=== PATIENT | female | born 1950 | race Caucasian/White ===

== ENCOUNTER 2016-11-12 14:24 | Inpatient (IN) | payer MEDICARE ==
[2016-11-12 14:59] LABS: CHLORIDE,CL 100 mEq/L (98-106); SODIUM,NA 141 mEq/L (136-145)
[2016-11-12] MEDS ORDERED: Ondansetron 4 MG/2 ML SDV IV PRN (16:50)
[2016-11-12] MEDS ORDERED: Magnesium Sulfate/D5W 2 GM in Premix Bag 1 BAG IV ONE (16:50)
[2016-11-12] MEDS ORDERED: Ondansetron 4 MG Tab.DIS PO PRN (16:50)
[2016-11-12] MEDS ORDERED: SALIVA SUBSTITUTION COMBO NO 9 PO PRN (17:06)
[2016-11-12] MEDS ORDERED: ALENDRONATE SODIUM 70 MG PO SCH (17:15)
[2016-11-12] MEDS: Sodium Chloride 0.45% with KCl 1,000 ML IV SCH (17:17)
[2016-11-12] MEDS: Enoxaparin 30 MG/0.3 ML Syringe SUBCUT SCH (17:20)
[2016-11-12] MEDS ORDERED: Meclizine 12.5 MG Tab PO PRN (17:38)
[2016-11-12] MEDS: Amitriptyline 25 MG Tab PO SCH (19:55)
[2016-11-12] MEDS: Lactulose Soln 10 GM/15 ML 30 ML UD Cup PO SCH (19:56)
[2016-11-12] MEDS: Potassium Chloride 10 MEQ Tab.ER PO SCH (19:56)
[2016-11-12] MEDS: Polyvinyl Alcohol 1.4% Ophth Soln 15 ML Bottle EYEBOTH SCH (19:57)
[2016-11-12] MEDS: Famotidine 20 MG Tab PO SCH (19:57)
[2016-11-12] MEDS: Insulin Detemir 100 Units/ML 3 ML Pen SUBCUT SCH (21:22)
[2016-11-12] MEDS: Nystatin Crm 30 GM Tube TOP SCH (21:27)
[2016-11-13] MEDS: Nystatin Crm 30 GM Tube TOP SCH ×2 (07:23→20:18)
[2016-11-13] MEDS: Polyvinyl Alcohol 1.4% Ophth Soln 15 ML Bottle EYEBOTH SCH ×3 (07:23→20:23)
[2016-11-13] MEDS ORDERED: OMEGA PO SCH (08:00)
[2016-11-13] MEDS ORDERED: Potassium Chloride 10 MEQ Tab.ER PO SCH (08:21)
[2016-11-13] MEDS: Chlorthalidone 25 MG Tab PO SCH (08:36)
[2016-11-13] MEDS: Aspirin 81 MG Tab.Chew PO SCH (08:36)
[2016-11-13] MEDS: Lactulose Soln 10 GM/15 ML 30 ML UD Cup PO SCH ×2 (08:36→20:18)
[2016-11-13] MEDS: Torsemide 20 MG Tab PO SCH (08:37)
[2016-11-13] MEDS: Folic Acid 1 MG Tab PO SCH ×2 (08:37→20:18)
[2016-11-13] MEDS: atorvaSTATin 20 MG Tab PO SCH (08:38)
[2016-11-13] MEDS: Famotidine 20 MG Tab PO SCH ×2 (08:39→20:17)
[2016-11-13] MEDS: Pantoprazole 40 MG Tab.CR PO SCH (08:40)
[2016-11-13] MEDS: Clopidogrel 75 MG Tab PO SCH (08:40)
[2016-11-13] MEDS: FLUoxetine 20 MG Cap PO SCH (08:40)
[2016-11-13] MEDS: Atenolol 50 MG Tab PO SCH (08:40)
[2016-11-13] MEDS: Potassium Chloride 10 MEQ Tab.ER PO SCH ×3 (08:42→17:22)
[2016-11-13] MEDS ORDERED: Potassium Chloride 10 MEQ Tab.ER PO ONE (09:00)
[2016-11-13] MEDS: Insulin Aspart 100 Units/ML 3 ML Pen SUBCUT SCH ×4 (09:15→20:24)
--- NOTE | 2016-11-13 09:18 | PCM.PN ---
- General Info Date of Service: 11/13/16 Admission Dx/Problem (Free Text): Hypomagnesemia Abdominal Pain Weakness Functional Status: Reports: Pain Controlled, Tolerating Diet, Ambulating (does still weak in the left leg but improved some since yesterday) - Review of Systems General: Reports: Weakness, Fatigue. Denies: Fever HEENT: Reports: No Symptoms Pulmonary: Denies: Shortness of Breath, Cough Cardiovascular: Denies: Chest Pain, Edema, Lightheadedness Gastrointestinal: Reports: Abdominal Pain. Denies: Nausea, Vomiting Genitourinary: Denies: Dysuria Musculoskeletal: Reports: No Symptoms Skin: Reports: No Symptoms Neurological: Reports: Dizziness, Weakness Psychiatric: Reports: No Symptoms - Patient Data Vitals - Most Recent: Last Vital Signs Temp 97.5 F 11/13/16 07:15 Pulse 64 11/13/16 08:40 Resp 20 11/13/16 07:15 BP 138/63 11/13/16 08:40 Pulse Ox 95 11/13/16 07:15 Weight - Most Recent: 184 lb 4.8 oz Lab Results Last 24 Hours: Laboratory Results - last 24 hr 11/12/16 11/12/16 11/12/16 Range/Units 14:35 14:35 14:35 WBC 6.1 (5.0-10.0) 10^3/uL RBC 3.89 L (4.00-5.50) 10^6/uL Hgb 11.1 L (12.0-16.0) g/dL Hct 33.3 L (37.0-47.0) % MCV 85.6 (82.0-94.0) fL MCH 28.5 (27.0-32.0) pg MCHC 33.3 (33.0-38.0) g/dL RDW Coeff of [place]idget[place] 13.7 (11.0-15.0) % Plt Count 95 L (150-400) 10^3/uL Neut % (Auto) 59.4 (35-85) % Lymph % (Auto) 28.1 (10-55) % [place] % (Auto) 8.8 (0-16) % Eos % (Auto) 3.5 (0-5) % Baso % (Auto) 0.2 (0-3) % Neut # (Auto) 3.60 (1.80-7.00) 10^3/uL Lymph # (Auto) 1.70 (1.00-4.80) 10^3/uL [place] # (Auto) 0.53 (0.00-0.80) 10^3/uL Eos # (Auto) 0.21 (0.00-0.45) 10^3/uL Baso # (Auto) 0.01 10^3/uL Sodium 141 (136-145) mEq/L Potassium 3.3 L (3.5-5.0) mEq/L Chloride 100 (98-106) mEq/L Carbon Dioxide 32 (21-32) mmol/L BUN 28 H (7-18) mg/dL Creatinine 1.5 H (0.6-1.0) mg/dL Est Cr Clr Drug Dosing 26.50 mL/min Estimated GFR (MDRD) 35 L (>=60) mL/min Glucose 194 H (75-99) mg/dL POC Glucose (75-105) mg/dl Calcium 8.5 (8.4-10.1) mg/dL Magnesium 1.3 L (1.8-2.4) mg/dL Total Bilirubin 0.6 (0.0-1.0) mg/dL AST 28 (15-37) U/L ALT 35 (12-78) U/L Alkaline Phosphatase 69 (46-116) U/L Troponin I < 0.017 (0.00-0.06) ng/mL Total Protein 8.0 (6.4-8.2) g/dL Albumin 3.5 (3.4-5.0) g/dL Urine Color Yellow (YELLOW) Urine Appearance Clear (CLEAR) Urine pH 5.5 (4.5-8.0) Ur Specific [place] 1.015 (1.003-1.020) Urine Protein Negative (NEGATIVE) mg/dL Urine Glucose (UA) Negative (NEGATIVE) mg/dL Urine Ketones Negative (NEGATIVE) mg/dL Urine Occult Blood Negative (NEGATIVE) Urine Nitrite Negative (NEGATIVE) Urine Bilirubin Negative (NEGATIVE) Urine Urobilinogen 0.2 (0.2-1.0) EU/dL Ur Leukocyte Esterase Small H (NEGATIVE) Urine RBC Not seen (0-5) /HPF Urine WBC 0-5 (0-5) /HPF 11/12/16 11/12/16 11/13/16 Range/Units 17:08 20:24 06:45 WBC (5.0-10.0) 10^3/uL RBC (4.00-5.50) 10^6/uL Hgb (12.0-16.0) g/dL Hct (37.0-47.0) % MCV (82.0-94.0) fL MCH (27.0-32.0) pg MCHC (33.0-38.0) g/dL RDW Coeff of [place]idget[place] (11.0-15.0) % Plt Count (150-400) 10^3/uL Neut % (Auto) (35-85) % Lymph % (Auto) (10-55) % [place] % (Auto) (0-16) % Eos % (Auto) (0-5) % Baso % (Auto) (0-3) % Neut # (Auto) (1.80-7.00) 10^3/uL Lymph # (Auto) (1.00-4.80) 10^3/uL [place] # (Auto) (0.00-0.80) 10^3/uL Eos # (Auto) (0.00-0.45) 10^3/uL Baso # (Auto) 10^3/uL Sodium 141 (136-145) mEq/L Potassium 3.2 L (3.5-5.0) mEq/L Chloride 102 (98-106) mEq/L Carbon Dioxide 30 (21-32) mmol/L BUN 19 H (7-18) mg/dL Creatinine 1.1 H (0.6-1.0) mg/dL Est Cr Clr Drug Dosing 36.14 mL/min Estimated GFR (MDRD) 50 L (>=60) mL/min Glucose 130 H D (75-99) mg/dL POC Glucose 262 H 255 H (75-105) mg/dl Calcium 8.5 (8.4-10.1) mg/dL Magnesium 1.8 (1.8-2.4) mg/dL Total Bilirubin (0.0-1.0) mg/dL AST (15-37) U/L ALT (12-78) U/L Alkaline Phosphatase (46-116) U/L Troponin I (0.00-0.06) ng/mL Total Protein (6.4-8.2) g/dL Albumin (3.4-5.0) g/dL Urine Color (YELLOW) Urine Appearance (CLEAR) Urine pH (4.5-8.0) Ur Specific [place] (1.003-1.020) Urine Protein (NEGATIVE) mg/dL Urine Glucose (UA) (NEGATIVE) mg/dL Urine Ketones (NEGATIVE) mg/dL Urine Occult Blood (NEGATIVE) Urine Nitrite (NEGATIVE) Urine Bilirubin (NEGATIVE) Urine Urobilinogen (0.2-1.0) EU/dL Ur Leukocyte Esterase (NEGATIVE) Urine RBC (0-5) /HPF Urine WBC (0-5) /HPF 11/13/16 Range/Units 07:11 WBC (5.0-10.0) 10^3/uL RBC (4.00-5.50) 10^6/uL Hgb (12.0-16.0) g/dL Hct (37.0-47.0) % MCV (82.0-94.0) fL MCH (27.0-32.0) pg MCHC (33.0-38.0) g/dL RDW Coeff of [place] (11.0-15.0) % Plt Count (150-400) 10^3/uL Neut % (Auto) (35-85) % Lymph % (Auto) (10-55) % [place] % (Auto) (0-16) % Eos % (Auto) (0-5) % Baso % (Auto) (0-3) % Neut # (Auto) (1.80-7.00) 10^3/uL Lymph # (Auto) (1.00-4.80) 10^3/uL [place] # (Auto) (0.00-0.80) 10^3/uL Eos # (Auto) (0.00-0.45) 10^3/uL Baso # (Auto) 10^3/uL Sodium (136-145) mEq/L Potassium (3.5-5.0) mEq/L Chloride (98-106) mEq/L Carbon Dioxide (21-32) mmol/L BUN (7-18) mg/dL Creatinine (0.6-1.0) mg/dL Est Cr Clr Drug Dosing mL/min Estimated GFR (MDRD) (>=60) mL/min Glucose (75-99) mg/dL POC Glucose 127 H (75-105) mg/dl Calcium (8.4-10.1) mg/dL Magnesium (1.8-2.4) mg/dL Total Bilirubin (0.0-1.0) mg/dL AST (15-37) U/L ALT (12-78) U/L Alkaline Phosphatase (46-116) U/L Troponin I (0.00-0.06) ng/mL Total Protein (6.4-8.2) g/dL Albumin (3.4-5.0) g/dL Urine Color (YELLOW) Urine Appearance (CLEAR) Urine pH (4.5-8.0) Ur Specific [place] (1.003-1.020) Urine Protein (NEGATIVE) mg/dL Urine Glucose (UA) (NEGATIVE) mg/dL Urine Ketones (NEGATIVE) mg/dL Urine Occult Blood (NEGATIVE) Urine Nitrite (NEGATIVE) Urine Bilirubin (NEGATIVE) Urine Urobilinogen (0.2-1.0) EU/dL Ur Leukocyte Esterase (NEGATIVE) Urine RBC (0-5) /HPF Urine WBC (0-5) /HPF Med Orders - Current: Current Medications Acetaminophen (Tylenol) 650 mg PO Q4H PRN PRN Reason: Pain (Mild 1-3)/fever Amitriptyline HCl (Elavil) 50 mg PO BEDTIME [facility] Last Admin: 11/12/16 19:55 Dose: 50 mg Artificial Tears (Liquitears 1.4% Ophth Soln) 0 ml EYEBOTH TID [facility] Last Admin: 11/13/16 07:23 Dose: 1 drop Aspirin (Aspirin) 81 mg PO DAILY [facility] Last Admin: 11/13/16 08:36 Dose: 81 mg Atenolol (Tenormin) 50 mg PO DAILY [facility] Last Admin: 11/13/16 08:40 Dose: 50 mg Atorvastatin Calcium (Lipitor) 80 mg PO DAILY [facility] Last Admin: 11/13/16 08:38 Dose: 80 mg Chlorthalidone (Chlorthalidone) 12.5 mg PO DAILY [facility] Last Admin: 11/13/16 08:36 Dose: 12.5 mg Clopidogrel Bisulfate (Plavix) 75 mg PO DAILY [facility] Last Admin: 11/13/16 08:40 Dose: 75 mg Digoxin (Lanoxin) 125 mcg PO DAILY@1200 [facility] Enoxaparin Sodium (Lovenox) 30 mg SUBCUT Q24H [facility] Last Admin: 11/12/16 17:20 Dose: 30 mg Famotidine (Pepcid) 20 mg PO BID [facility] Last Admin: 11/13/16 08:39 Dose: 20 mg Fluoxetine HCl (Prozac) 20 mg PO DAILY [facility] Last Admin: 11/13/16 08:40 Dose: 20 mg Folic Acid (Folic Acid) 0.5 mg PO BID [facility] Last Admin: 11/13/16 08:37 Dose: 0.5 mg Potassium Chloride/Sodium Chloride (1/2 Ns With 20 Meq Kcl) 1,000 mls @ 50 mls/ hr IV ASDIRECTED [facility] Last Admin: 11/12/16 17:17 Dose: 50 mls/hr Insulin Aspart (Novolog) 0 unit SUBCUT WITHMEALSANDBED [facility] PRN Reason: Protocol Insulin Detemir (Levemir) 30 unit SUBCUT BEDTIME [facility] Last Admin: 11/12/16 21:22 Dose: 30 units Lactulose (Cephulac) 20 gm PO BID [facility] Last Admin: 11/13/16 08:36 Dose: 20 gm Magnesium Oxide (Magnesium Oxide) 500 mg PO DAILY [facility] Last Admin: 11/13/16 08:39 Dose: 500 mg Magnesium Oxide (Magnesium Oxide) 250 mg PO DAILY [facility] Last Admin: 11/13/16 08:39 Dose: 250 mg Meclizine HCl (Antivert) 25 mg PO QID PRN PRN Reason: Dizziness Metformin HCl (Glucophage) 1,000 mg PO BID [facility] Non-Formulary Medication (Alendronate Sodium [Alendronate]) 70 mg PO WEEKLY [facility] Non-Formulary Medication (Saliva Substitution Combo No.9 [Biotene]) 1 applic PO DAILY PRN PRN Reason: Other Nystatin (Nystatin Crm) 0 gm TOP BID [facility] Last Admin: 11/13/16 07:23 Dose: 1 applic Ondansetron HCl (Zofran Odt) 4 mg PO Q4H PRN PRN Reason: nausea, able to take PO Ondansetron HCl (Zofran) 4 mg IV Q4H PRN PRN Reason: Nausea/Vomiting Pantoprazole Sodium (Protonix) 40 mg PO DAILY [facility] Last Admin: 11/13/16 08:40 Dose: 40 mg Torsemide (Demadex) 20 mg PO DAILY [facility] Last Admin: 11/13/16 08:37 Dose: 20 mg Discontinued Medications Magnesium Sulfate/Dextrose 2 (gm/ Premix) 200 mls @ 100 mls/hr IV ONETIME ONE Stop: 11/12/16 18:49 Last Admin: 11/12/16 17:21 Dose: 100 mls/hr Non-Formulary Medication ([place]-3 Fatty Acids [Fish Oil]) 1 cap PO DAILY [facility] Last Admin: 11/13/16 08:41 Dose: Not Given Potassium Chloride (Klor-Con 10) 10 meq PO BID [facility] Last Admin: 11/13/16 08:42 Dose: Not Given Potassium Chloride (Klor-Con 10) 20 meq PO BIDMEALS [facility] Last Admin: 11/13/16 08:49 Dose: 20 meq Potassium Chloride (Klor-Con 10) 20 meq PO ONETIME ONE Stop: 11/13/16 09:01 Last Admin: 11/13/16 08:51 Dose: Not Given - Exam General: Alert, Oriented HEENT: Other (dry mucous membranes but chronic) Neck: Supple Lungs: Clear to Auscultation, Normal Respiratory Effort Cardiovascular: Regular Rate, Regular Rhythm GI/Abdominal Exam: Normal Bowel Sounds, Soft, Tender (upper quadrants) Extremities: Normal Inspection, Normal Range of Motion, No Pedal Edema, Other ( weakness in LLE) Skin: Warm, Dry Neurological: No New Focal Deficit Psy/Mental Status: Alert, Normal Affect, Normal Mood - Problem List & Annotations (1) Hypomagnesemia SNOMED Code(s): 514318419 Code(s): E83.42 - HYPOMAGNESEMIA Status: Acute Priority: High Current Visit: Yes (2) Hypokalemia SNOMED Code(s): 68854005 Code(s): E87.6 - HYPOKALEMIA Status: Acute Priority: High Current Visit : Yes (3) Weakness SNOMED Code(s): 98184893 Code(s): R53.1 - WEAKNESS Status: Acute Priority: High Current Visit: Yes - Problem List Review Problem List Initiated/Reviewed/Updated: Yes - My Orders Last 24 Hours: My Active Orders 11/12/16 16:50 Patient Status [ADT] Routine Blood Glucose Check, Bedside [RC] 0730,1130,1730,2100 Oxygen Therapy [RC] .PRN Up With Assistance [RC] .PRN Vital Signs [RC] 0000,0400,0800,1200,1600,2000 Acetaminophen [Tylenol] 650 mg PO Q4H PRN Ondansetron [Zofran ODT] 4 mg PO Q4H PRN Ondansetron [Zofran] 4 mg IV Q4H PRN Resuscitation Status Routine 11/12/16 16:53 Cardiac Monitoring [RC] 0800,199911/12/16 17:00 Enoxaparin [Lovenox] 30 mg SUBCUT Q24H Sodium Chloride 0.45% with KCl [1/2 NS with 20 mEq KCl] 1,000 ml IV ASDIRECTED 11/12/16 17:06 Saliva Substitution Combo No.9 [Biotene] 1 applic PO DAILY PRN 11/12/16 17:15 Alendronate Sodium [Alendronate] 70 mg PO WEEKLY 11/12/16 17:38 Meclizine [Antivert] 25 mg PO QID PRN 11/12/16 20:00 Amitriptyline [Elavil] 50 mg PO BEDTIME Famotidine [Pepcid] 20 mg PO BID Insulin Detemir [Levemir] 30 unit SUBCUT BEDTIME Lactulose [Cephulac] 20 gm PO BID Nystatin [Nystatin Crm] 0 gm TOP BID Polyvinyl Alcohol [LiquiTears 1.4% Ophth Soln] 0 ml EYEBOTH TID metFORMIN [Glucophage] 1,000 mg PO BID 11/12/16 Dinner Consistent Carbohydrate Diet [DIET] 11/13/16 07:00 Abdomen Pelvis w Cont [CT] Routine 11/13/16 08:00 Aspirin 81 mg PO DAILY Atenolol [Tenormin] 50 mg PO DAILY Chlorthalidone 12.5 mg PO DAILY Clopidogrel [Plavix] 75 mg PO DAILY FLUoxetine [PROzac] 20 mg PO DAILY Folic Acid 0.5 mg PO BID Magnesium Oxide 250 mg PO DAILY Magnesium Oxide 500 mg PO DAILY Pantoprazole [ProTONIX] 40 mg PO DAILY Torsemide [Demadex] 20 mg PO DAILY atorvaSTATin [Lipitor] 80 mg PO DAILY 11/13/16 09:15 Insulin Aspart [NovoLOG] See Protocol SUBCUT WITHMEALSANDBED 11/13/16 12:00 Digoxin [Lanoxin] 125 mcg PO DAILY@1200 - Assessment Assessment:: Weakness Hypomagnesemia Hypokalemia - Plan Plan:: Patient feeling somewhat better today. She states her leg still feels weak but a little better, still had some dizziness during the night when getting up and felt her leg could give out on her. Less leg cramps. Still having abdominal discomfort but better. No nausea or vomiting. Magnesium improved to 1.8 this am, potassium still low at 3.2. CT scan done of abdomen today. No new changes in comparison to one last year, still noted cirrhosis of the liver and splenomegaly. No new infection or inflammatory change. Will continue with oral magnesium, increase oral potassium. Hold Metformin due to contrast from CT and start sliding scale insulin. Repeat labs in am. Consider MRI of brain next week due to leg weakness.
[2016-11-13] MEDS: metFORMIN 500 MG Tab PO SCH (09:35)
[2016-11-13] MEDS: Digoxin 125 MCG Tab PO SCH (11:55)
[2016-11-13] MEDS: Acetaminophen 325 MG Tab PO PRN (11:58)
[2016-11-13] MEDS: Sodium Chloride 0.45% with KCl 1,000 ML IV SCH (14:36)
[2016-11-13] MEDS: Enoxaparin 30 MG/0.3 ML Syringe SUBCUT SCH (17:23)
[2016-11-13] MEDS: Amitriptyline 25 MG Tab PO SCH (20:18)
[2016-11-13] MEDS: Gabapentin 300 MG Cap PO SCH (20:21)
[2016-11-13] MEDS: Insulin Detemir 100 Units/ML 3 ML Pen SUBCUT SCH (20:23)
[2016-11-14] MEDS: Lactulose Soln 10 GM/15 ML 30 ML UD Cup PO SCH ×2 (07:36→19:57)
[2016-11-14] MEDS: Aspirin 81 MG Tab.Chew PO SCH (07:36)
[2016-11-14] MEDS: Chlorthalidone 25 MG Tab PO SCH (07:36)
[2016-11-14] MEDS: Torsemide 20 MG Tab PO SCH (07:37)
[2016-11-14] MEDS: Folic Acid 1 MG Tab PO SCH ×2 (07:37→19:59)
[2016-11-14] MEDS: atorvaSTATin 20 MG Tab PO SCH (07:38)
[2016-11-14] MEDS: Potassium Chloride 10 MEQ Tab.ER PO SCH ×2 (07:38→16:56)
[2016-11-14] MEDS: Polyvinyl Alcohol 1.4% Ophth Soln 15 ML Bottle EYEBOTH SCH ×3 (07:39→20:08)
[2016-11-14] MEDS: Gabapentin 300 MG Cap PO SCH ×3 (07:41→19:58)
[2016-11-14] MEDS: Nystatin Crm 30 GM Tube TOP SCH ×2 (07:42→20:03)
[2016-11-14] MEDS: Insulin Aspart 100 Units/ML 3 ML Pen SUBCUT SCH ×4 (07:42→21:08)
[2016-11-14] MEDS: Pantoprazole 40 MG Tab.CR PO SCH (07:43)
[2016-11-14] MEDS: Clopidogrel 75 MG Tab PO SCH (07:43)
[2016-11-14] MEDS: Famotidine 20 MG Tab PO SCH ×2 (07:43→19:57)
[2016-11-14] MEDS: FLUoxetine 20 MG Cap PO SCH (07:44)
[2016-11-14] MEDS: Atenolol 50 MG Tab PO SCH (07:44)
[2016-11-14] MEDS: Digoxin 125 MCG Tab PO SCH (11:03)
[2016-11-14] MEDS: Sodium Chloride 0.45% with KCl 1,000 ML IV SCH (11:03)
[2016-11-14] MEDS ORDERED: Magnesium Sulfate/D5W 2 GM in Premix Bag 1 BAG IV ONE (12:15)
--- NOTE | 2016-11-14 13:32 | PCM.PN ---
- General Info Date of Service: 11/14/16 Admission Dx/Problem (Free Text): Hypomagnesemia Abdominal Pain Weakness Functional Status: Reports: Pain Controlled, Tolerating Diet, Ambulating - Review of Systems General: Reports: Weakness, Fatigue. Denies: Fever HEENT: Reports: No Symptoms Pulmonary: Denies: Shortness of Breath, Cough, Wheezing Cardiovascular: Denies: Chest Pain, Edema, Lightheadedness Gastrointestinal: Reports: Abdominal Pain. Denies: Nausea, Vomiting Genitourinary: Reports: No Symptoms Musculoskeletal: Reports: No Symptoms Skin: Reports: No Symptoms Neurological: Reports: Dizziness - Patient Data Vitals - Most Recent: Last Vital Signs Temp 97.9 F 11/14/16 11:34 Pulse 62 11/14/16 11:34 Resp 16 11/14/16 11:34 BP 150/78 H 11/14/16 11:34 Pulse Ox 96 11/14/16 11:34 Weight - Most Recent: 184 lb 4.8 oz I&O - Last 24 Hours: Intake & Output 11/13/16 11/14/16 11/14/16 22:59 06:59 14:59 Intake Total 1400 Balance 1400 Lab Results Last 24 Hours: Laboratory Results - last 24 hr 11/13/16 11/13/16 11/14/16 Range/Units 17:22 20:22 07:23 Sodium (136-145) mEq/L Potassium (3.5-5.0) mEq/L Chloride (98-106) mEq/L Carbon Dioxide (21-32) mmol/L BUN (7-18) mg/dL Creatinine (0.6-1.0) mg/dL Est Cr Clr Drug Dosing mL/min Estimated GFR (MDRD) (>=60) mL/min Glucose (75-99) mg/dL POC Glucose 174 H 230 H 132 H (75-105) mg/dl Calcium (8.4-10.1) mg/dL Magnesium (1.8-2.4) mg/dL 11/14/16 11/14/16 Range/Units 08:45 11:15 Sodium 140 (136-145) mEq/L Potassium 3.6 (3.5-5.0) mEq/L Chloride 100 (98-106) mEq/L Carbon Dioxide 31 (21-32) mmol/L BUN 14 (7-18) mg/dL Creatinine 1.3 H (0.6-1.0) mg/dL Est Cr Clr Drug Dosing 30.58 mL/min Estimated GFR (MDRD) 41 L (>=60) mL/min Glucose 240 H D (75-99) mg/dL POC Glucose 291 H (75-105) mg/dl Calcium 8.8 (8.4-10.1) mg/dL Magnesium 1.4 L (1.8-2.4) mg/dL Med Orders - Current: Current Medications Acetaminophen (Tylenol) 650 mg PO Q4H PRN PRN Reason: Pain (Mild 1-3)/fever Last Admin: 11/13/16 11:58 Dose: 650 mg Amitriptyline HCl (Elavil) 50 mg PO BEDTIME [facility] Last Admin: 11/13/16 20:18 Dose: 50 mg Artificial Tears (Liquitears 1.4% Ophth Soln) 0 ml EYEBOTH TID [facility] Last Admin: 11/14/16 07:39 Dose: 1 drop Aspirin (Aspirin) 81 mg PO DAILY [facility] Last Admin: 11/14/16 07:36 Dose: 81 mg Atenolol (Tenormin) 50 mg PO DAILY [facility] Last Admin: 11/14/16 07:44 Dose: 50 mg Atorvastatin Calcium (Lipitor) 80 mg PO DAILY [facility] Last Admin: 11/14/16 07:38 Dose: 80 mg Chlorthalidone (Chlorthalidone) 12.5 mg PO DAILY [facility] Last Admin: 11/14/16 07:36 Dose: 12.5 mg Clopidogrel Bisulfate (Plavix) 75 mg PO DAILY [facility] Last Admin: 11/14/16 07:43 Dose: 75 mg Digoxin (Lanoxin) 125 mcg PO DAILY@1200 [facility] Last Admin: 11/14/16 11:03 Dose: 125 mcg Enoxaparin Sodium (Lovenox) 30 mg SUBCUT Q24H [facility] Last Admin: 11/13/16 17:23 Dose: 30 mg Famotidine (Pepcid) 20 mg PO BID [facility] Last Admin: 11/14/16 07:43 Dose: 20 mg Fluoxetine HCl (Prozac) 20 mg PO DAILY [facility] Last Admin: 11/14/16 07:44 Dose: 20 mg Folic Acid (Folic Acid) 0.5 mg PO BID [facility] Last Admin: 11/14/16 07:37 Dose: 0.5 mg Gabapentin (Neurontin) 600 mg PO QAM [facility] Last Admin: 11/14/16 07:41 Dose: 600 mg Gabapentin (Neurontin) 300 mg PO 1400 [facility] Gabapentin (Neurontin) 900 mg PO QPM [facility] Last Admin: 11/13/16 20:21 Dose: 900 mg Potassium Chloride/Sodium Chloride (1/2 Ns With 20 Meq Kcl) 1,000 mls @ 50 mls/ hr IV ASDIRECTED [facility] Last Admin: 11/14/16 11:03 Dose: 50 mls/hr Magnesium Sulfate/Dextrose 2 (gm/ Premix) 200 mls @ 100 mls/hr IV ONETIME ONE Stop: 11/14/16 14:14 Last Admin: 11/14/16 12:35 Dose: 100 mls/hr Insulin Aspart (Novolog) 0 unit SUBCUT WITHMEALSANDBED [facility] PRN Reason: Protocol Last Admin: 11/14/16 12:11 Dose: 3 units Insulin Detemir (Levemir) 30 unit SUBCUT BEDTIME [facility] Last Admin: 11/13/16 20:23 Dose: 30 units Lactulose (Cephulac) 20 gm PO BID [facility] Last Admin: 11/14/16 07:36 Dose: 20 gm Magnesium Oxide (Magnesium Oxide) 500 mg PO DAILY [facility] Last Admin: 11/14/16 07:40 Dose: 500 mg Magnesium Oxide (Magnesium Oxide) 250 mg PO DAILY [facility] Last Admin: 11/14/16 07:41 Dose: 250 mg Meclizine HCl (Antivert) 25 mg PO QID PRN PRN Reason: Dizziness Metformin HCl (Glucophage) 1,000 mg PO BID [facility] Last Admin: 11/13/16 09:35 Dose: Not Given Non-Formulary Medication (Alendronate Sodium [Alendronate]) 70 mg PO WEEKLY [facility] Non-Formulary Medication (Saliva Substitution Combo No.9 [Biotene]) 1 applic PO DAILY PRN PRN Reason: Other Nystatin (Nystatin Crm) 0 gm TOP BID [facility] Last Admin: 11/14/16 07:42 Dose: 1 applic Ondansetron HCl (Zofran Odt) 4 mg PO Q4H PRN PRN Reason: nausea, able to take PO Ondansetron HCl (Zofran) 4 mg IV Q4H PRN PRN Reason: Nausea/Vomiting Pantoprazole Sodium (Protonix) 40 mg PO DAILY [facility] Last Admin: 11/14/16 07:43 Dose: 40 mg Potassium Chloride (Klor-Con 10) 20 meq PO BIDMEALS [facility] Last Admin: 11/14/16 07:38 Dose: 20 meq Torsemide (Demadex) 20 mg PO DAILY [facility] Last Admin: 11/14/16 07:37 Dose: 20 mg Discontinued Medications Magnesium Sulfate/Dextrose 2 (gm/ Premix) 200 mls @ 100 mls/hr IV ONETIME ONE Stop: 11/12/16 18:49 Last Admin: 11/12/16 17:21 Dose: 100 mls/hr Non-Formulary Medication ([place]-3 Fatty Acids [Fish Oil]) 1 cap PO DAILY [facility] Last Admin: 11/13/16 08:41 Dose: Not Given Potassium Chloride (Klor-Con 10) 10 meq PO BID [facility] Last Admin: 11/13/16 08:42 Dose: Not Given Potassium Chloride (Klor-Con 10) 20 meq PO BIDMEALS [facility] Last Admin: 11/13/16 08:49 Dose: 20 meq Potassium Chloride (Klor-Con 10) 20 meq PO ONETIME ONE Stop: 11/13/16 09:01 Last Admin: 11/13/16 08:51 Dose: Not Given - Exam General: Alert, Oriented HEENT: Other (mucous membranes dry) Neck: Supple Lungs: Clear to Auscultation, Normal Respiratory Effort Cardiovascular: Regular Rate, Regular Rhythm GI/Abdominal Exam: Normal Bowel Sounds, Soft, Tender (upper quads) Extremities: Normal Inspection, No Pedal Edema Skin: Warm, Dry Neurological: No New Focal Deficit Psy/Mental Status: Alert, Normal Affect, Normal Mood - Problem List & Annotations (1) Hypomagnesemia SNOMED Code(s): 427551304 Code(s): E83.42 - HYPOMAGNESEMIA Status: Acute Priority: High Current Visit: Yes (2) Hypokalemia SNOMED Code(s): 53629757 Code(s): E87.6 - HYPOKALEMIA Status: Acute Priority: High Current Visit : Yes (3) Weakness SNOMED Code(s): 73030086 Code(s): R53.1 - WEAKNESS Status: Acute Priority: High Current Visit: Yes - Problem List Review Problem List Initiated/Reviewed/Updated: Yes - My Orders Last 24 Hours: My Active Orders 11/14/16 12:15 Magnesium Sulfate/D5W [Magnesium 1 GM in D5W 100 ML] 2 gm Premix Bag 1 bag IV ONETIME - Assessment Assessment:: Weakness Hypomagnesemia Hypokalemia - Plan Plan:: Patient feeling somewhat better today. She states her leg still feels weak but a little better, still had some dizziness during the night when getting up and felt her leg could give out on her. Less leg cramps. Still having abdominal discomfort but better. No nausea or vomiting. Magnesium improved to 1.8 this am, potassium still low at 3.2. CT scan done of abdomen today. No new changes in comparison to one last year, still noted cirrhosis of the liver and splenomegaly. No new infection or inflammatory change. Will continue with oral magnesium, increase oral potassium. Hold Metformin due to contrast from CT and start sliding scale insulin. Repeat labs in am. Consider MRI of brain next week due to leg weakness. 11-14-2016 Patient states is starting to feel less weak but still having trouble with dizziness at times with ambulation. Appetite good. Abdominal pain is mild, no change from yesterday. Voiding without difficulty. Labs noted. Potassium stable. Magnesium now low again at 1.4. Will give 2 gm of Magnesium again today IV. Encourage ambulation. Repeat labs in am.
[2016-11-14] MEDS: Enoxaparin 30 MG/0.3 ML Syringe SUBCUT SCH (16:55)
[2016-11-14] MEDS: Amitriptyline 25 MG Tab PO SCH (20:00)
[2016-11-14] MEDS ORDERED: Amitriptyline 10 MG Tab ONE (20:03)
[2016-11-14] MEDS: Insulin Detemir 100 Units/ML 3 ML Pen SUBCUT SCH (21:06)
[2016-11-15] MEDS: Lactulose Soln 10 GM/15 ML 30 ML UD Cup PO SCH ×2 (08:24→19:45)
[2016-11-15] MEDS: Aspirin 81 MG Tab.Chew PO SCH (08:25)
[2016-11-15] MEDS: Pantoprazole 40 MG Tab.CR PO SCH (08:26)
[2016-11-15] MEDS: Famotidine 20 MG Tab PO SCH ×2 (08:26→19:48)
[2016-11-15] MEDS: FLUoxetine 20 MG Cap PO SCH (08:26)
[2016-11-15] MEDS: Atenolol 50 MG Tab PO SCH (08:26)
[2016-11-15] MEDS: Clopidogrel 75 MG Tab PO SCH (08:27)
[2016-11-15] MEDS: Gabapentin 300 MG Cap PO SCH ×3 (08:27→19:46)
[2016-11-15] MEDS: Torsemide 20 MG Tab PO SCH (08:27)
[2016-11-15] MEDS: Chlorthalidone 25 MG Tab PO SCH (08:28)
[2016-11-15] MEDS: Folic Acid 1 MG Tab PO SCH ×2 (08:28→19:45)
[2016-11-15] MEDS: atorvaSTATin 20 MG Tab PO SCH (08:29)
[2016-11-15] MEDS: Potassium Chloride 10 MEQ Tab.ER PO SCH ×2 (08:29→17:34)
[2016-11-15] MEDS: metFORMIN 500 MG Tab PO SCH ×2 (08:30→19:47)
[2016-11-15] MEDS: Acetaminophen 325 MG Tab PO PRN (08:34)
[2016-11-15] MEDS: Insulin Aspart 100 Units/ML 3 ML Pen SUBCUT SCH ×4 (08:34→21:08)
[2016-11-15] MEDS: Nystatin Crm 30 GM Tube TOP SCH ×2 (08:35→19:54)
[2016-11-15] MEDS: Polyvinyl Alcohol 1.4% Ophth Soln 15 ML Bottle EYEBOTH SCH ×3 (08:35→19:54)
[2016-11-15] MEDS ORDERED: Sodium Chloride 0.9% 10 ML Syringe FLUSH PRN (10:42)
--- NOTE | 2016-11-15 10:45 | PCM.PN ---
- General Info Date of Service: 11/15/16 Admission Dx/Problem (Free Text): Hypomagnesemia Abdominal Pain Weakness Functional Status: Reports: Pain Controlled, Tolerating Diet, Ambulating - Review of Systems General: Reports: Weakness, Fatigue. Denies: Fever HEENT: Reports: No Symptoms Pulmonary: Denies: Shortness of Breath, Cough Cardiovascular: Reports: Lightheadedness. Denies: Chest Pain, Edema Gastrointestinal: Reports: No Symptoms Genitourinary: Reports: No Symptoms Musculoskeletal: Reports: No Symptoms Skin: Reports: No Symptoms Neurological: Reports: Dizziness, Weakness - Patient Data Vitals - Most Recent: Last Vital Signs Temp 97.2 F 11/15/16 07:55 Pulse 61 11/15/16 08:26 Resp 16 11/15/16 07:55 BP 109/65 11/15/16 08:26 Pulse Ox 98 11/15/16 07:55 Weight - Most Recent: 184 lb 4.8 oz I&O - Last 24 Hours: Intake & Output 11/14/16 11/15/16 11/15/16 22:59 06:59 14:59 Intake Total 300 Balance 300 Lab Results Last 24 Hours: Laboratory Results - last 24 hr 11/14/16 11/14/16 11/14/16 Range/Units 11:15 17:27 20:18 Sodium (136-145) mEq/L Potassium (3.5-5.0) mEq/L Chloride (98-106) mEq/L Carbon Dioxide (21-32) mmol/L BUN (7-18) mg/dL Creatinine (0.6-1.0) mg/dL Est Cr Clr Drug Dosing mL/min Estimated GFR (MDRD) (>=60) mL/min Glucose (75-99) mg/dL POC Glucose 291 H 240 H 318 H (75-105) mg/dl Calcium (8.4-10.1) mg/dL Magnesium (1.8-2.4) mg/dL 11/15/16 11/15/16 Range/Units 06:40 07:42 Sodium 143 (136-145) mEq/L Potassium 3.5 (3.5-5.0) mEq/L Chloride 103 (98-106) mEq/L Carbon Dioxide 35 H (21-32) mmol/L BUN 13 (7-18) mg/dL Creatinine 1.1 H (0.6-1.0) mg/dL Est Cr Clr Drug Dosing 36.14 mL/min Estimated GFR (MDRD) 50 L (>=60) mL/min Glucose 158 H D (75-99) mg/dL POC Glucose 153 H (75-105) mg/dl Calcium 8.8 (8.4-10.1) mg/dL Magnesium 1.8 (1.8-2.4) mg/dL Med Orders - Current: Current Medications Acetaminophen (Tylenol) 650 mg PO Q4H PRN PRN Reason: Pain (Mild 1-3)/fever Last Admin: 11/15/16 08:34 Dose: 650 mg Amitriptyline HCl (Elavil) 50 mg PO BEDTIME [facility] Last Admin: 11/14/16 20:00 Dose: 50 mg Artificial Tears (Liquitears 1.4% Ophth Soln) 0 ml EYEBOTH TID [facility] Last Admin: 11/15/16 08:35 Dose: 1 drop Aspirin (Aspirin) 81 mg PO DAILY [facility] Last Admin: 11/15/16 08:25 Dose: 81 mg Atenolol (Tenormin) 50 mg PO DAILY [facility] Last Admin: 11/15/16 08:26 Dose: 50 mg Atorvastatin Calcium (Lipitor) 80 mg PO DAILY [facility] Last Admin: 11/15/16 08:29 Dose: 80 mg Chlorthalidone (Chlorthalidone) 12.5 mg PO DAILY [facility] Last Admin: 11/15/16 08:28 Dose: 12.5 mg Clopidogrel Bisulfate (Plavix) 75 mg PO DAILY [facility] Last Admin: 11/15/16 08:27 Dose: 75 mg Digoxin (Lanoxin) 125 mcg PO DAILY@1200 [facility] Last Admin: 11/14/16 11:03 Dose: 125 mcg Enoxaparin Sodium (Lovenox) 30 mg SUBCUT Q24H [facility] Last Admin: 11/14/16 16:55 Dose: 30 mg Famotidine (Pepcid) 20 mg PO BID [facility] Last Admin: 11/15/16 08:26 Dose: 20 mg Fluoxetine HCl (Prozac) 20 mg PO DAILY [facility] Last Admin: 11/15/16 08:26 Dose: 20 mg Folic Acid (Folic Acid) 0.5 mg PO BID [facility] Last Admin: 11/15/16 08:28 Dose: 0.5 mg Gabapentin (Neurontin) 600 mg PO QAM [facility] Last Admin: 11/15/16 08:27 Dose: 600 mg Gabapentin (Neurontin) 300 mg PO 1400 [facility] Last Admin: 11/14/16 14:37 Dose: 300 mg Gabapentin (Neurontin) 900 mg PO QPM [facility] Last Admin: 11/14/16 19:58 Dose: 900 mg Insulin Aspart (Novolog) 0 unit SUBCUT WITHMEALSANDBED [facility] PRN Reason: Protocol Last Admin: 11/15/16 08:34 Dose: 1 units Insulin Detemir (Levemir) 30 unit SUBCUT BEDTIME [facility] Last Admin: 11/14/16 21:06 Dose: 30 units Lactulose (Cephulac) 20 gm PO BID [facility] Last Admin: 11/15/16 08:24 Dose: 20 gm Magnesium Oxide (Magnesium Oxide) 500 mg PO BID [facility] Meclizine HCl (Antivert) 25 mg PO QID PRN PRN Reason: Dizziness Metformin HCl (Glucophage) 1,000 mg PO BID [facility] Last Admin: 11/15/16 08:30 Dose: 1,000 mg Non-Formulary Medication (Alendronate Sodium [Alendronate]) 70 mg PO WEEKLY [facility] Non-Formulary Medication (Saliva Substitution Combo No.9 [Biotene]) 1 applic PO DAILY PRN PRN Reason: Other Nystatin (Nystatin Crm) 0 gm TOP BID [facility] Last Admin: 11/15/16 08:35 Dose: 1 applic Ondansetron HCl (Zofran Odt) 4 mg PO Q4H PRN PRN Reason: nausea, able to take PO Ondansetron HCl (Zofran) 4 mg IV Q4H PRN PRN Reason: Nausea/Vomiting Pantoprazole Sodium (Protonix) 40 mg PO DAILY [facility] Last Admin: 11/15/16 08:26 Dose: 40 mg Potassium Chloride (Klor-Con 10) 20 meq PO BIDMEALS [facility] Last Admin: 11/15/16 08:29 Dose: 20 meq Torsemide (Demadex) 20 mg PO DAILY [facility] Last Admin: 11/15/16 08:27 Dose: 20 mg Discontinued Medications Amitriptyline HCl (Elavil) Confirm Administered Dose 30 mg .ROUTE .STK-MED ONE Stop: 11/14/16 20:04 Last Admin: 11/14/16 21:10 Dose: Not Given Magnesium Sulfate/Dextrose 2 (gm/ Premix) 200 mls @ 100 mls/hr IV ONETIME ONE Stop: 11/12/16 18:49 Last Admin: 11/12/16 17:21 Dose: 100 mls/hr Potassium Chloride/Sodium Chloride (1/2 Ns With 20 Meq Kcl) 1,000 mls @ 50 mls/ hr IV ASDIRECTED [facility] Last Admin: 11/14/16 11:03 Dose: 50 mls/hr Magnesium Sulfate/Dextrose 2 (gm/ Premix) 200 mls @ 100 mls/hr IV ONETIME ONE Stop: 11/14/16 14:14 Last Admin: 11/14/16 12:35 Dose: 100 mls/hr Magnesium Oxide (Magnesium Oxide) 500 mg PO DAILY [facility] Last Admin: 11/15/16 08:25 Dose: 500 mg Magnesium Oxide (Magnesium Oxide) 250 mg PO DAILY [facility] Last Admin: 11/15/16 08:25 Dose: 250 mg Non-Formulary Medication ([place]-3 Fatty Acids [Fish Oil]) 1 cap PO DAILY [facility] Last Admin: 11/13/16 08:41 Dose: Not Given Potassium Chloride (Klor-Con 10) 10 meq PO BID [facility] Last Admin: 11/13/16 08:42 Dose: Not Given Potassium Chloride (Klor-Con 10) 20 meq PO BIDMEALS [facility] Last Admin: 11/13/16 08:49 Dose: 20 meq Potassium Chloride (Klor-Con 10) 20 meq PO ONETIME ONE Stop: 11/13/16 09:01 Last Admin: 11/13/16 08:51 Dose: Not Given - Exam General: Alert, Oriented Neck: Supple Lungs: Clear to Auscultation, Normal Respiratory Effort Cardiovascular: Regular Rate, Regular Rhythm GI/Abdominal Exam: Normal Bowel Sounds, Soft, Tender Extremities: Normal Inspection, No Pedal Edema Skin: Warm, Dry Neurological: No New Focal Deficit - Problem List & Annotations (1) Hypomagnesemia SNOMED Code(s): 776052314 Code(s): E83.42 - HYPOMAGNESEMIA Status: Acute Priority: High Current Visit: Yes (2) Hypokalemia SNOMED Code(s): 20730343 Code(s): E87.6 - HYPOKALEMIA Status: Acute Priority: High Current Visit : Yes (3) Weakness SNOMED Code(s): 24092074 Code(s): R53.1 - WEAKNESS Status: Acute Priority: High Current Visit: Yes - Problem List Review Problem List Initiated/Reviewed/Updated: Yes - My Orders Last 24 Hours: My Active Orders 11/15/16 10:42 Sodium Chloride 0.9% [Saline Flush] 10 ml FLUSH ASDIRECTED PRN Convert IV to Saline Lock [OM.PC] Routine 11/15/16 20:00 Magnesium Oxide 500 mg PO BID 11/16/16 05:11 BASIC METABOLIC PANEL,BMP [CHEM] AM CBC WITH AUTO DIFF [HEME] AM MAGNESIUM [CHEM] Routine - Assessment Assessment:: Weakness Hypomagnesemia Hypokalemia - Plan Plan:: Patient feeling somewhat better today. She states her leg still feels weak but a little better, still had some dizziness during the night when getting up and felt her leg could give out on her. Less leg cramps. Still having abdominal discomfort but better. No nausea or vomiting. Magnesium improved to 1.8 this am, potassium still low at 3.2. CT scan done of abdomen today. No new changes in comparison to one last year, still noted cirrhosis of the liver and splenomegaly. No new infection or inflammatory change. Will continue with oral magnesium, increase oral potassium. Hold Metformin due to contrast from CT and start sliding scale insulin. Repeat labs in am. Consider MRI of brain next week due to leg weakness. 11-14-2016 Patient states is starting to feel less weak but still having trouble with dizziness at times with ambulation. Appetite good. Abdominal pain is mild, no change from yesterday. Voiding without difficulty. Labs noted. Potassium stable. Magnesium now low again at 1.4. Will give 2 gm of Magnesium again today IV. Encourage ambulation. Repeat labs in am. 11-15-2016 Patient states is feeling close to her normal self. Legs feel stronger. Does still have mild dizziness when up. She has been tolerating her diet well. Magnesium is stable again today at 1.8 but did drop after not receiving IV dose 2 days ago as well. Potassium stable. Will increase her oral magnesium, recheck levels in am and hopefully send home. She is encouraged to ambulate in [place].
[2016-11-15] MEDS: Digoxin 125 MCG Tab PO SCH (12:16)
[2016-11-15] MEDS: Enoxaparin 30 MG/0.3 ML Syringe SUBCUT SCH (17:34)
[2016-11-15] MEDS: Amitriptyline 25 MG Tab PO SCH (19:47)
[2016-11-15] MEDS: Insulin Detemir 100 Units/ML 3 ML Pen SUBCUT SCH (21:07)
[2016-11-16] MEDS: Polyvinyl Alcohol 1.4% Ophth Soln 15 ML Bottle EYEBOTH SCH (07:41)
[2016-11-16] MEDS: Insulin Aspart 100 Units/ML 3 ML Pen SUBCUT SCH ×2 (07:41→12:05)
[2016-11-16] MEDS: Nystatin Crm 30 GM Tube TOP SCH (07:42)
[2016-11-16] MEDS: Folic Acid 1 MG Tab PO SCH (07:42)
[2016-11-16] MEDS: Lactulose Soln 10 GM/15 ML 30 ML UD Cup PO SCH (07:42)
[2016-11-16] MEDS: atorvaSTATin 20 MG Tab PO SCH (07:44)
[2016-11-16] MEDS: Atenolol 50 MG Tab PO SCH (07:45)
[2016-11-16] MEDS: FLUoxetine 20 MG Cap PO SCH (07:45)
[2016-11-16] MEDS: Pantoprazole 40 MG Tab.CR PO SCH (07:45)
[2016-11-16] MEDS: Aspirin 81 MG Tab.Chew PO SCH (07:46)
[2016-11-16] MEDS: Gabapentin 300 MG Cap PO SCH (07:46)
[2016-11-16] MEDS: Famotidine 20 MG Tab PO SCH (07:46)
[2016-11-16] MEDS: Clopidogrel 75 MG Tab PO SCH (07:46)
[2016-11-16] MEDS: Potassium Chloride 10 MEQ Tab.ER PO SCH (07:47)
[2016-11-16] MEDS: Torsemide 20 MG Tab PO SCH (07:47)
[2016-11-16] MEDS: metFORMIN 500 MG Tab PO SCH (07:47)
[2016-11-16] MEDS: Chlorthalidone 25 MG Tab PO SCH (07:48)
--- NOTE | 2016-11-16 11:35 | PCM.DCSUM1 ---
Discharge Summary - Hospital Course Free Text/Narrative:: Patient admitted on Thursday afternoon with weakness, dizziness and low magnesium. Had a 4 day history that started with left arm and leg weakness, felt like possible stroke symptoms although she didn't want to go to the ED at that time. Presented with some improvement in the arm but leg still felt weak. Nearly fell x2 due to legs feeling like they were going to give out on her. She had notes some low blood sugars but not necessarily correlating with the dizziness. Had labs drawn in [place] and was called to be admitted. Magnesium low at 1.3 and need for IV replacement as already taking oral at home. - Discharge Data Discharge Date: 11/16/16 Discharge Disposition: Home, Self-Care 01 Condition: Fair - Discharge Diagnosis/Problem(s) (1) Hypomagnesemia SNOMED Code(s): 245988457 ICD Code: E83.42 - HYPOMAGNESEMIA Status: Acute Priority: High Current Visit: Yes (2) Hypokalemia SNOMED Code(s): 86667753 ICD Code: E87.6 - HYPOKALEMIA Status: Acute Priority: High Current Visit: Yes (3) Weakness SNOMED Code(s): 59440886 ICD Code: R53.1 - WEAKNESS Status: Acute Priority: High Current Visit: Yes - Patient Summary/Data Complications: none Hospital Course: Patient has reached her near normal state. Has had improvement of her dizziness. She does still feel some mild weakness in her legs, but improved. She did have good response after the first 2 gm of magnesium sulfate IV but it did not hold as again dropped to 1.4. Given a second dose of IV Magnesium and increased oral magnesium to 1000 mg up from her usual 650 per day. She is holding the level better now at 1.6. Patient had a CT scan of her abdomen due to abdominal pain, did show cirrhosis of the liver and splenomegaly which is unchanged for her. No new acute changes. Abdominal discomfort has improved, mild now. Has had good bowel movements while here. Is ambulating per self now with walker. Potassium has been mildly low at 3.2 to 3.3, increased her oral potassium from 10 mEq BID to 20 mEq BID and will go home on this dose as well. - Patient Instructions Diet: Diabetic Diet Activity: As Tolerated - Discharge Plan Prescriptions/Med Rec: Magnesium Oxide 500 mg PO BID #60 tablet Potassium Chloride [Klor-Con 10] 20 meq PO BIDMEALS #60 tab.er Home Medications: Home Meds Amitriptyline [Elavil] 50 mg PO BEDTIME 09/14/15 [History] Aspirin 81 mg PO DAILY 09/14/15 [History] Atenolol/Chlorthalidone [Atenolol-Chlorthalidone 100-25] 50 mg PO DAILY [History] Clopidogrel [Plavix] 75 mg PO DAILY 09/14/15 [History] Digoxin 0.125 mg PO DAILY 09/14/15 [History] FLUoxetine [PROzac] 20 mg PO DAILY 09/14/15 [History] Famotidine 20 mg PO BID 09/14/15 [History] Folic Acid 0.4 mg PO BID 09/14/15 [History] Gabapentin [Neurontin] 600 mg PO QAM 09/14/15 [History] Insulin Glarg,Human.Rec.Analog [LantUS Solostar] 30 units SQ BEDTIME 09/14/15 [ History] Magnesium Oxide 400 mg PO DAILY 09/14/15 [History] Meclizine [Antivert] 25 mg PO QID PRN 09/14/15 [History] [place]-3 Fatty Acids [Fish Oil] 1 cap PO DAILY 09/14/15 [History] Pantoprazole [ProTONIX] 40 mg PO DAILY 09/14/15 [History] Polyvinyl Alcohol/Povidone/Pf [Refresh Classic Eye Drops] 1 drop EYEBOTH TID 10/22 [History] Potassium Chloride 10 meq PO BID 09/14/15 [History] Torsemide 20 mg PO DAILY 09/14/15 [History] atorvaSTATin [Lipitor] 80 mg PO DAILY 09/14/15 [History] metFORMIN [Glucophage] 1,000 mg PO BID 09/14/15 [History] Alendronate Sodium [Alendronate] 70 mg PO WEEKLY 11/12/16 [History] Biotin [Hard Nails] 5,000 mcg PO DAILY 11/12/16 [History] Hydrocortisone Valerate 1 applic TOP DAILY PRN 11/12/16 [History] Lactulose [Chronulac] 30 ml PO BID 11/12/16 [History] Mupirocin Cream [Bactroban Crm] 1 applic TOP DAILY 11/12/16 [History] Nitroglycerin [Nitrostat] 0.4 mg SL Q5M PRN 11/12/16 [History] Nystatin [Nystatin Crm] 1 applic TOP BID 11/12/16 [History] Saliva Substitution Combo No.9 [Biotene] 1 applic PO DAILY PRN 11/12/16 [History ] Gabapentin [Neurontin] 300 mg PO 1400 11/13/16 [History] Gabapentin [Neurontin] 600 mg PO QPM 11/13/16 [History] Magnesium Oxide 500 mg PO BID #60 tablet 11/16/16 [Rx] Potassium Chloride [Klor-Con 10] 20 meq PO BIDMEALS #60 tab.er 11/16/16 [Rx] Referrals: Alicia Manzano PA [Family Provider] - (Follow up on Thursday at 11 am with Aura. Zahira prior ) - Discharge Summary/Plan Comment DC Time >30 min.: Yes Discharge Summary/Plan Comment: Patient discharge home. Will have her continue 1000 mg of magnesium. Potassium 20 mEq BID. Push fluids. usual meds. follow up in clinic on thursday and have repeat labs at that time. - General Info Date of Service: 11/16/16 Admission Dx/Problem (Free Text: Hypomagnesemia Abdominal Pain Weakness Functional Status: Reports: Pain Controlled, Tolerating Diet, Ambulating - Review of Systems General: Reports: Weakness, Fatigue. Denies: Fever HEENT: Reports: No Symptoms Pulmonary: Denies: Shortness of Breath, Cough Cardiovascular: Denies: Chest Pain, Edema, Lightheadedness Gastrointestinal: Reports: Abdominal Pain. Denies: Nausea, Vomiting Genitourinary: Reports: No Symptoms Musculoskeletal: Reports: No Symptoms Skin: Reports: No Symptoms Neurological: Reports: No Symptoms - Patient Data Vitals - Most Recent: Last Vital Signs Temp 97.8 F 11/16/16 07:51 Pulse 65 11/16/16 07:51 Resp 16 11/16/16 07:51 BP 156/75 H 11/16/16 07:51 Pulse Ox 94 L 11/16/16 07:51 Weight - Most Recent: 184 lb 4.8 oz Lab Results - Last 24 hrs: Laboratory Results - last 24 hr 11/15/16 11/15/16 11/16/16 Range/Units 17:10 20:17 06:45 WBC 4.4 L (5.0-10.0) 10^3/uL RBC 3.82 L (4.00-5.50) 10^6/uL Hgb 10.8 L (12.0-16.0) g/dL Hct 32.7 L (37.0-47.0) % MCV 85.6 (82.0-94.0) fL MCH 28.3 (27.0-32.0) pg MCHC 33.0 (33.0-38.0) g/dL RDW Coeff of Bridgette 13.6 (11.0-15.0) % Plt Count 82 L (150-400) 10^3/uL Neut % (Auto) 42.3 (35-85) % Lymph % (Auto) 41.9 (10-55) % [place]cl[place]an % (Auto) 12.0 (0-16) % Eos % (Auto) 3.8 (0-5) % Baso % (Auto) 0 (0-3) % Neut # (Auto) 1.87 (1.80-7.00) 10^3/uL Lymph # (Auto) 1.85 (1.00-4.80) 10^3/uL [place] # (Auto) 0.53 (0.00-0.80) 10^3/uL Eos # (Auto) 0.17 (0.00-0.45) 10^3/uL Baso # (Auto) 0.00 10^3/uL Sodium (136-145) mEq/L Potassium (3.5-5.0) mEq/L Chloride (98-106) mEq/L Carbon Dioxide (21-32) mmol/L BUN (7-18) mg/dL Creatinine (0.6-1.0) mg/dL Est Cr Clr Drug Dosing mL/min Estimated GFR (MDRD) (>=60) mL/min Glucose (75-99) mg/dL POC Glucose 220 H 320 H (75-105) mg/dl Calcium (8.4-10.1) mg/dL Magnesium (1.8-2.4) mg/dL 11/16/16 11/16/16 Range/Units 06:45 07:37 WBC (5.0-10.0) 10^3/uL RBC (4.00-5.50) 10^6/uL Hgb (12.0-16.0) g/dL Hct (37.0-47.0) % MCV (82.0-94.0) fL MCH (27.0-32.0) pg MCHC (33.0-38.0) g/dL RDW Coeff of Bridgette (11.0-15.0) % Plt Count (150-400) 10^3/uL Neut % (Auto) (35-85) % Lymph % (Auto) (10-55) % [place]cl[place] % (Auto) (0-16) % Eos % (Auto) (0-5) % Baso % (Auto) (0-3) % Neut # (Auto) (1.80-7.00) 10^3/uL Lymph # (Auto) (1.00-4.80) 10^3/uL [place] # (Auto) (0.00-0.80) 10^3/uL Eos # (Auto) (0.00-0.45) 10^3/uL Baso # (Auto) 10^3/uL Sodium 142 (136-145) mEq/L Potassium 3.3 L (3.5-5.0) mEq/L Chloride 102 (98-106) mEq/L Carbon Dioxide 33 H (21-32) mmol/L BUN 15 (7-18) mg/dL Creatinine 1.1 H (0.6-1.0) mg/dL Est Cr Clr Drug Dosing 36.14 mL/min Estimated GFR (MDRD) 50 L (>=60) mL/min Glucose 148 H (75-99) mg/dL POC Glucose 138 H (75-105) mg/dl Calcium 8.8 (8.4-10.1) mg/dL Magnesium 1.6 L (1.8-2.4) mg/dL Med Orders - Current: Current Medications Acetaminophen (Tylenol) 650 mg PO Q4H PRN PRN Reason: Pain (Mild 1-3)/fever Last Admin: 11/15/16 08:34 Dose: 650 mg Amitriptyline HCl (Elavil) 50 mg PO BEDTIME [facility] Last Admin: 11/15/16 19:47 Dose: 50 mg Artificial Tears (Liquitears 1.4% Ophth Soln) 0 ml EYEBOTH TID [facility] Last Admin: 11/16/16 07:41 Dose: 1 drop Aspirin (Aspirin) 81 mg PO DAILY [facility] Last Admin: 11/16/16 07:46 Dose: 81 mg Atenolol (Tenormin) 50 mg PO DAILY [facility] Last Admin: 11/16/16 07:45 Dose: 50 mg Atorvastatin Calcium (Lipitor) 80 mg PO DAILY [facility] Last Admin: 11/16/16 07:44 Dose: 80 mg Chlorthalidone (Chlorthalidone) 12.5 mg PO DAILY [facility] Last Admin: 11/16/16 07:48 Dose: 12.5 mg Clopidogrel Bisulfate (Plavix) 75 mg PO DAILY [facility] Last Admin: 11/16/16 07:46 Dose: 75 mg Digoxin (Lanoxin) 125 mcg PO DAILY@1200 [facility] Last Admin: 11/15/16 12:16 Dose: 125 mcg Enoxaparin Sodium (Lovenox) 30 mg SUBCUT Q24H [facility] Last Admin: 11/15/16 17:34 Dose: 30 mg Famotidine (Pepcid) 20 mg PO BID [facility] Last Admin: 11/16/16 07:46 Dose: 20 mg Fluoxetine HCl (Prozac) 20 mg PO DAILY [facility] Last Admin: 11/16/16 07:45 Dose: 20 mg Folic Acid (Folic Acid) 0.5 mg PO BID [facility] Last Admin: 11/16/16 07:42 Dose: 0.5 mg Gabapentin (Neurontin) 600 mg PO QAM [facility] Last Admin: 11/16/16 07:46 Dose: 600 mg Gabapentin (Neurontin) 300 mg PO 1400 [facility] Last Admin: 11/15/16 14:06 Dose: 300 mg Gabapentin (Neurontin) 900 mg PO QPM [facility] Last Admin: 11/15/16 19:46 Dose: 900 mg Insulin Aspart (Novolog) 0 unit SUBCUT WITHMEALSANDBED [facility] PRN Reason: Protocol Last Admin: 11/16/16 07:41 Dose: Not Given Insulin Detemir (Levemir) 30 unit SUBCUT BEDTIME [facility] Last Admin: 11/15/16 21:07 Dose: 30 units Lactulose (Cephulac) 20 gm PO BID [facility] Last Admin: 11/16/16 07:42 Dose: 20 gm Magnesium Oxide (Magnesium Oxide) 500 mg PO BID [facility] Last Admin: 11/16/16 07:43 Dose: 500 mg Meclizine HCl (Antivert) 25 mg PO QID PRN PRN Reason: Dizziness Metformin HCl (Glucophage) 1,000 mg PO BID [facility] Last Admin: 11/16/16 07:47 Dose: 1,000 mg Non-Formulary Medication (Alendronate Sodium [Alendronate]) 70 mg PO WEEKLY [facility] Non-Formulary Medication (Saliva Substitution Combo No.9 [Biotene]) 1 applic PO DAILY PRN PRN Reason: Other Nystatin (Nystatin Crm) 0 gm TOP BID [facility] Last Admin: 11/16/16 07:42 Dose: 1 applic Ondansetron HCl (Zofran Odt) 4 mg PO Q4H PRN PRN Reason: nausea, able to take PO Ondansetron HCl (Zofran) 4 mg IV Q4H PRN PRN Reason: Nausea/Vomiting Pantoprazole Sodium (Protonix) 40 mg PO DAILY [facility] Last Admin: 11/16/16 07:45 Dose: 40 mg Potassium Chloride (Klor-Con 10) 20 meq PO BIDMEALS [facility] Last Admin: 11/16/16 07:47 Dose: 20 meq Sodium Chloride (Saline Flush) 10 ml FLUSH ASDIRECTED PRN PRN Reason: Keep Vein Open Torsemide (Demadex) 20 mg PO DAILY [facility] Last Admin: 11/16/16 07:47 Dose: 20 mg Discontinued Medications Amitriptyline HCl (Elavil) Confirm Administered Dose 30 mg .ROUTE .STK-MED ONE Stop: 11/14/16 20:04 Last Admin: 11/14/16 21:10 Dose: Not Given Magnesium Sulfate/Dextrose 2 (gm/ Premix) 200 mls @ 100 mls/hr IV ONETIME ONE Stop: 11/12/16 18:49 Last Admin: 11/12/16 17:21 Dose: 100 mls/hr Potassium Chloride/Sodium Chloride (1/2 Ns With 20 Meq Kcl) 1,000 mls @ 50 mls/ hr IV ASDIRECTED [facility] Last Admin: 11/14/16 11:03 Dose: 50 mls/hr Magnesium Sulfate/Dextrose 2 (gm/ Premix) 200 mls @ 100 mls/hr IV ONETIME ONE Stop: 11/14/16 14:14 Last Admin: 11/14/16 12:35 Dose: 100 mls/hr Magnesium Oxide (Magnesium Oxide) 500 mg PO DAILY [facility] Last Admin: 11/15/16 08:25 Dose: 500 mg Magnesium Oxide (Magnesium Oxide) 250 mg PO DAILY [facility] Last Admin: 11/15/16 08:25 Dose: 250 mg Non-Formulary Medication ([place]-3 Fatty Acids [Fish Oil]) 1 cap PO DAILY [facility] Last Admin: 11/13/16 08:41 Dose: Not Given Potassium Chloride (Klor-Con 10) 10 meq PO BID [facility] Last Admin: 11/13/16 08:42 Dose: Not Given Potassium Chloride (Klor-Con 10) 20 meq PO BIDMEALS [facility] Last Admin: 11/13/16 08:49 Dose: 20 meq Potassium Chloride (Klor-Con 10) 20 meq PO ONETIME ONE Stop: 11/13/16 09:01 Last Admin: 11/13/16 08:51 Dose: Not Given - Exam General: Reports: Alert, Oriented HEENT: Reports: Mucous Membr. Moist/[place] Neck: Reports: Supple Lungs: Reports: Clear to Auscultation, Normal Respiratory Effort Cardiovascular: Reports: Regular Rate, Regular Rhythm GI/Abdominal Exam: Normal Bowel Sounds, Soft, Tender (upper quadrants) Extremities: Normal Inspection, No Pedal Edema Skin: Reports: Warm, Dry Neurological: Reports: No New Focal Deficit Psy/Mental Status: Reports: Alert, Normal Affect, Normal Mood *Q Meaningful Use (DIS) - VTE *Q VTE Criteria *Q: - Stroke *Q Stroke Criteria *Q: - AMI *Q AMI Criteria *Q:
[2016-11-16 11:51] VITALS: BP 150/80
[2016-11-16] MEDS: Digoxin 125 MCG Tab PO SCH (12:04)
== END 2016-11-16 12:30 | disposition home or self-care (01) | DRG 948 ==
LOC: CC.MS 14:24 → CC.CHC 14:24 → CC.MS 15:58 → UNDOADMIN 15:58 → CC.MS 16:50
PROVIDERS: ADMIT Physician Assistant Medical; ATTEND Family Medicine
DX: R53.1 Weakness (principal); R42 Dizziness and giddiness; E87.6 Hypokalemia; E83.42 Hypomagnesemia; E66.9 Obesity, unspecified; Z68.30 Body mass index [BMI] 30.0-30.9, adult; R10.9 Unspecified abdominal pain; R53.83 Other fatigue; R25.2 Cramp and spasm; E11.9 Type 2 diabetes mellitus without complications; Z88.8 Allergy status to other drugs, medicaments and biological substances; Z79.82 Long term (current) use of aspirin; Z79.02 Long term (current) use of antithrombotics/antiplatelets; Z79.4 Long term (current) use of insulin; Z79.899 Other long term (current) drug therapy
CPT/HCPCS: 36415; 74177; 80048; 80053; 81001; 82962; 83735; 84484; 85025; A9270-GY; J1650; J1815-GY; J3475; J3480; Q9967

== ENCOUNTER → 2017-03-27 | Day surgery (SDC) | payer MEDICARE ==
[~2017-03-27] MED LIST: Lactated Ringers 1,000 ML IV SCH; Propofol 200 MG/20 ML SDV IV ONE
[2017-03-27 10:56] VITALS: BP 126/56
--- NOTE | 2017-03-30 08:09 | OR ---
DATE OF OPERATION: 03/27/2017 PREOPERATIVE DIAGNOSIS: SCREENING COLONOSCOPY. POSTOPERATIVE DIAGNOSIS: SCREENING COLONOSCOPY. SURGEON: Nabil Poon MD PROCEDURE: INCOMPLETE COLONOSCOPY TO DISTAL TRANSVERSE COLON. ANESTHESIA: INSPECTOR CLIP ON SUNGLASSES. COMPLICATIONS: None. SPECIMEN: None. FINDINGS: 1. Incomplete colonoscopy to distal transverse colon. 2. Extremely poor bowel prep. RECOMMENDATIONS: The patient could consider a followup scope with a longer prep as she had a full prep and multiple enemas in our facility and still was unable to clear. INDICATIONS: The patient was seen by her primary care provider and screening colonoscopy was recommended. DESCRIPTION OF PROCEDURE: The patient was prepped and draped, placed in the left lateral decubitus position. A lubricated Olympus colonoscope was inserted, and actually, we had to withdraw the scope on our first try because she had solid stool from the rectal vault all the way through to the distal sigmoid colon. She was taken back to same-day care and given four separate enemas to try to clear her. About an hour and a half later, a second attempt was made and we were able to traverse to approximately the distal 3rd of the transverse colon. The patient then again had solid stool and we were unable to get past this and we elected to stop there and remove the scope. From the splenic flexure to the rectal vault, the patient had no signs of any obvious polyps, mass, ulceration, bleeding sites. No vascular abnormalities or signs of colitis. There were no significant diverticula. The rectal vault appeared benign. Retroflexion was accomplished and I did not see any perianal lesions. Air was suctioned and scope was removed without complication. DUYEN/OANH /[id number]
== END ==
LOC: CC.SDS 07:00
PROVIDERS: ATTEND Family Medicine
DX: Z12.11 Encounter for screening for malignant neoplasm of colon (principal); E11.22 Type 2 diabetes mellitus with diabetic chronic kidney disease; E11.42 Type 2 diabetes mellitus with diabetic polyneuropathy; N18.3 Chronic kidney disease, stage 3 (moderate); E83.42 Hypomagnesemia; E87.6 Hypokalemia; F41.9 Anxiety disorder, unspecified; I25.10 Atherosclerotic heart disease of native coronary artery without angina pectoris; F32.9 Major depressive disorder, single episode, unspecified; K21.9 Gastro-esophageal reflux disease without esophagitis; E66.9 Obesity, unspecified; E78.5 Hyperlipidemia, unspecified; Z79.4 Long term (current) use of insulin; Z79.82 Long term (current) use of aspirin; Z79.899 Other long term (current) drug therapy; Z88.8 Allergy status to other drugs, medicaments and biological substances
CPT/HCPCS: 82962; 93005; G0121; J2704; J7120; 00812; 93010

== ENCOUNTER → 2019-01-11 | Day surgery (SDC) | payer MEDICARE ==
[~2019-01-11] MED LIST changes: +ALPRAZolam 0.5 MG Tab.DIS (ODT) PO ONE; +ALPRAZolam ODT 0.25 MG Tab ONE; -Lactated Ringers 1,000 ML IV SCH; +Lidocaine 1% 20 ML MDV ONE; -Propofol 200 MG/20 ML SDV IV ONE
[2019-01-11 13:55] VITALS: BP 160/67; PULSE 60
== END ==
LOC: CC.SDS 10:14
PROVIDERS: ATTEND Family Medicine
DX: I83.11 Varicose veins of right lower extremity with inflammation (principal); I83.811 Varicose veins of right lower extremity with pain
CPT/HCPCS: A4216; A9270-GY

== ENCOUNTER → 2019-01-18 | Day surgery (SDC) | payer MEDICARE ==
[2019-01-18 12:57] VITALS: BP 153/71; PULSE 60
== END ==
LOC: CC.SDS 09:49
PROVIDERS: ATTEND Family Medicine
DX: I83.12 Varicose veins of left lower extremity with inflammation (principal); I83.812 Varicose veins of left lower extremity with pain
CPT/HCPCS: A9270-GY